=== PATIENT | female | born 1975 | race Caucasian/White ===

== ENCOUNTER 2023-11-12 09:33 | Outpatient (CLI) | payer OTHER, SELFPAY | END 2023-11-12 09:34 | disposition home or self-care (01) | LOC: ANHLAB 09:35 | PROVIDERS: PCP Nurse Practitioner Family; Visit Provider Nurse Practitioner Family | DX: R30.0 Dysuria (principal); K21.9 Gastro-esophageal reflux disease without esophagitis | CPT/HCPCS: 87086; 87088 ==

== ENCOUNTER 2024-03-15 07:24 | Outpatient (CLI) | payer OTHER, SELFPAY ==
[2024-03-15 08:14] LABS: Alanine Aminotransferase 20 U/L (6-35); Albumin Level 4.5 g/dL (3.5-5.1); Alkaline Phosphatase 64 U/L (38-126); Anion Gap 8 mmol/L (4-12); Aspartate Amino Transferase 22 U/L (14-36); Bilirubin,Total 0.6 mg/dL (0.2-1.3); Blood Urea Nitrogen 11 mg/dL (7-17); Calcium 8.9 mg/dL (8.4-10.2); Carbon Dioxide 30 mmol/L (22-30); Chloride 101 mmol/L (98-107); Cholesterol 230 mg/dL (0-200); Estimated Glomerular Filt Rate > 60; Glucose 105 mg/dL (65-110); HDL Direct 58 mg/dL; Potassium 3.6 mmol/L (3.4-5.0); Sodium 139 mmol/L (137-145); Triglycerides 150 mg/dL (<150)
[2024-03-15 08:25] LABS: LDL Cholesterol Direct 137 mg/dL
[2024-03-15 09:13] LABS: Hemoglobin A1C 5.2 % (<5.7)
[2024-03-15 09:34] LABS: Hematocrit 44.4 % (37.0-47.0); Hemoglobin 14.7 g/dL (12.0-15.0); Mean Corpuscular HGB Conc 33.1 g/dl (32-36); Mean Corpuscular Hemoglobin 30.6 pg (26-34); Mean Corpuscular Volume 92.3 fl (80-100); Mean Platelet Volume 10.1 fl (7.4-10.4); Platelet Count Result 258 k/mm3 (150-375); Red Blood Count 4.81 M/mm3 (4.2-5.4); Red Cell Distribution Width 12.5 % (11.5-14.5); White Blood Count 7.3 K/mm3 (4.5-10.0)
== END 2024-03-15 07:25 | disposition home or self-care (01) ==
LOC: ANHLAB 07:27
PROVIDERS: PCP Nurse Practitioner Family; Visit Provider Nurse Practitioner Family
DX: Z13.220 Encounter for screening for lipoid disorders (principal); Z13.29 Encounter for screening for other suspected endocrine disorder; Z13.1 Encounter for screening for diabetes mellitus; Z13.0 Encounter for screening for diseases of the blood and blood-forming organs and certain disorders involving the immune mechanism
CPT/HCPCS: 36415; 80053; 80061; 83036; 84443; 85027